=== PATIENT | male | born 1955 | race Caucasian/White ===

== ENCOUNTER → 2023-10-02 11:55 | Outpatient (REF) | payer BC, SELFPAY | LOC: PAVMRI 11:55 | PROVIDERS: ATTENDING PHYSICIAN Psychiatry & Neurology Neurology; FAMILY PHYSICIAN Family Medicine | DX: M47.12 Other spondylosis with myelopathy, cervical region (principal) | CPT/HCPCS: 72141 ==

== ENCOUNTER → 2023-10-10 08:13 | Outpatient (REF) | payer BC, SELFPAY | LOC: HWRAD 08:13 | PROVIDERS: ATTENDING PHYSICIAN Surgery; FAMILY PHYSICIAN Family Medicine | DX: K86.2 Cyst of pancreas (principal) | CPT/HCPCS: 74160; Q9967 ==

== ENCOUNTER → 2023-11-12 10:46 | Outpatient (REF) | payer BC, SELFPAY | LOC: PAVMRI 10:46 | PROVIDERS: ATTENDING PHYSICIAN Internal Medicine Gastroenterology | DX: R93.89 Abnormal findings on diagnostic imaging of other specified body structures (principal); K86.2 Cyst of pancreas | CPT/HCPCS: 74183; A9575 ==

== ENCOUNTER → 2023-11-28 08:09 | Outpatient (REF) | payer BC, SELFPAY | LOC: PAVMRI 08:09 | PROVIDERS: ATTENDING PHYSICIAN Psychiatry & Neurology Neurology | DX: G12.20 Motor neuron disease, unspecified (principal); R29.2 Abnormal reflex; R47.1 Dysarthria and anarthria | CPT/HCPCS: 70551 ==

== ENCOUNTER → 2024-02-28 10:43 | Outpatient (REF) | payer MEDICARE, OTHER, SELFPAY | LOC: PAVMRI 10:43 | PROVIDERS: ATTENDING PHYSICIAN Specialist | DX: M47.816 Spondylosis without myelopathy or radiculopathy, lumbar region (principal) | CPT/HCPCS: 72148 ==

== ENCOUNTER → 2024-05-19 10:18 | Outpatient (REF) | payer MEDICARE, BC, SELFPAY | LOC: PAVMRI 10:18 | PROVIDERS: ATTENDING PHYSICIAN Psychiatry & Neurology Neurology | DX: G12.21 Amyotrophic lateral sclerosis (principal); M54.16 Radiculopathy, lumbar region; R29.2 Abnormal reflex; M47.12 Other spondylosis with myelopathy, cervical region; R53.83 Other fatigue; S09.90XD Unspecified injury of head, subsequent encounter; R41.3 Other amnesia | CPT/HCPCS: 72141 ==